=== PATIENT | female | born 1980 | race Caucasian/White ===

== ENCOUNTER 2019-11-19 03:13 | Observation (INO) | payer BC, SELFPAY ==
--- NOTE | 2019-11-19 03:13 | OBADM ---
This patient, Maine Iyer, admitted to the OB room OB Post 117 for observation. Patient/family oriented to hospital policies and general routines including ID bracelet, bed and alarms, visiting hours, pain management, procedures, bathroom and other care routines, personal items, smoking policy, room service/diet, and visiting hours. Patient/Family are encouraged to report perceived risks to care and to ask questions if they do not understand what they are told or what they should do.
[2019-11-19 03:30] VITALS: RESP 20; TEMP 37.2; BMI 28.0
[2019-11-19] MEDS: LACTATED RINGERS 1,000 ML 125 ML IV CONT (04:30)
[2019-11-19] MEDS: ONDANSETRON INJ 4 MG/2 ML VIAL IV PUSH (04:30)
[2019-11-19 04:31] VITALS: BP 113/60; PULSE 120
--- NOTE | 2019-11-19 04:52 | PM.OBTRLD ---
OB - Triage/Final Diagnosis Evaluation Vital signs: Vital Signs - 24 hr 11/19/19 04:31 Pulse Rate 120 H Blood Pressure 113/60
[2019-11-19 04:56] LABS: Blood Urea Nitrogen 5 mg/dL (7-17); Calcium 8.4 mg/dL (8.4-10.2); Carbon Dioxide 23 mmol/L (22-30); Chloride 101 mmol/L (98-107); Estimated Glomerular Filt Rate > 60; Glucose 107 mg/dL (65-105); Sodium 133 mmol/L (137-145)
--- NOTE | 2019-11-19 05:01 | PM.OBTRLD ---
OB - Triage/Final Diagnosis Visit Information Date of evaluation: 11/19/19 Reason for evaluation: other (nausea and vomiting) Evaluation Baseline heart rate: 145 Variability: Moderate (11-25) monitor accelerations: Absent monitor decelerations: Variable Laboratory results: Laboratory Tests 11/19/19 04:35 Sodium 133 L Potassium 4.0 Chloride 101 Carbon Dioxide 23 BUN 5 L Creatinine 0.50 L Estim Creat Clear Calc Not Reportable Estimated GFR > 60 Glucose 107 H Calcium 8.4 Vital signs: Vital Signs - 24 hr 11/19/19 04:31 Pulse Rate 120 H Blood Pressure 113/60
[2019-11-19 05:19] LABS: Influenza Control Positive
== END 2019-11-19 07:10 | disposition home or self-care (01) ==
PROVIDERS: Admitting Provider Student in an Organized Health Care Education/Training Program; Visit Provider Student in an Organized Health Care Education/Training Program
DX: O21.2 Late vomiting of pregnancy (principal); Z3A.37 37 weeks gestation of pregnancy
CPT/HCPCS: 36415; 80048; 87804; 96361; 96374; G0378; G0379; J2405; J7120

== ENCOUNTER 2019-11-23 05:50 | Inpatient (IN) | payer BC, SELFPAY ==
[2019-11-23] VITALS (54 sets, daily range): BP systolic 78–140; BP diastolic 41–90; PULSE 63–112; RESP 14–18; TEMP 36.4–37.3; O2SAT 93–100; BMI 28.0
--- NOTE | 2019-11-23 09:08 | LDADM ---
This patient, Maine Iyer, was admitted to Labor/Delivery/Recovery 119 on 11/23/19 at 05:50. Plans for Section with bilateral tubal ligation/ and pain management were discussed with patient. Patient/family oriented to hospital policies and general routines including ID bracelet, bed and alarms, visiting hours, pain management, procedures, bathroom and other care routines, personal items, smoking policy, room service/diet and guest tray routines, infant security routines, and visiting hours. Patient/Family are encouraged to report perceived risks to care and to ask questions if they do not understand what they are told or what they should do. See OBIX for further documentation.
[2019-11-23] MEDS: LACTATED RINGERS 1,000 ML 125 ML IV CONT ×2 (09:30→12:53)
--- NOTE | 2019-11-23 10:06 | PM.IMHP ---
H&P: HPI History of Present Illness Chief complaint: labor Narrative: Maine Iyer is a 39 year old at 37w3d who presents in labor. She reports regular contractions that started last night. She endorses good FM. She denies vaginal bleeding or LOF. Review of Systems Review of Systems: All systems reviewed & are unremarkable except as noted in HPI and below PMFSH Social History Social History (System 09/26/19 @ 12:46 by Danielle Ross) Smoking status: Never smoker Second hand tobacco smoke exposure: No Alcohol intake: current Substance use: never Spiritual care concerns: No Meds Home Medications and Allergies Home Medications Medication Instructions Recorded Confirmed Type 400 mcg PO DAILY 11/19/19 11/19/19 History Allergies Allergy/AdvReac Type Severity Reaction Status Date / Time No Known Allergies Allergy Verified 09/26/19 12:46 Exam Const: General: no acute distress and uncomfortable Neck: Neck: no JVD Resp: Effort & Inspection: normal respiratory effort Auscultation: clear to auscultation bilaterally GI: GI Palp: No Tenderness to palpation present (GI) Other: Gravid uterus, size equal to dates Neuro: Speech: normal speech Extrem: General: normal to inspection Psych: Mental Status: mental status grossly normal Affect: normal affect Assessment and Plan Assessment and plan (1) : Code(s): Z34.90 - Encounter for supervision of normal , unspecified, unspecified trimester Status: Acute Assessment and Plan: 37w gestation, valenzuela FHT 135, category 1 Rh+ GBS neg (2) History of delivery affecting : Code(s): O34.219 - Maternal care for unspecified type scar from previous delivery Status: Acute Assessment and Plan: pt presents in labor, cvs changed from FT to 2cm pt desires repeat section (3) Encounter for sterilization: Code(s): Z30.2 - Encounter for sterilization Status: Acute Assessment and Plan: plan for bilateral tubal ligation at the time of delivery
[2019-11-23 10:34] LABS: Basophils Percent Auto 0.5 % (0.2-1.2); Eosinophils Absolute Auto 0.1 K/mm3 (0-0.3); Eosinophils Percent Auto 0.9 % (0-4.4); Hematocrit 38.6 % (37.0-47.0); Hemoglobin 12.7 g/dL (12.0-15.0); Immature Granulocyte Absolute 0.02 K/mm3 (0.00-0.031); Immature Granulocyte Percent A 0.3 % (0-0.5); Lymphocytes Absolute Auto 1.31 K/mm3 (0.9-3.2); Lymphocytes Percent Auto 22.3 % (18.3-44.2); Mean Corpuscular HGB Conc 32.9 g/dl (32-36); Mean Corpuscular Hemoglobin 30.6 pg (26-34); Mean Platelet Volume 10.6 fl (7.4-10.4); Monocytes Absolute Auto 0.4 K/mm3 (0.1-0.6); Monocytes Percent Auto 7.1 % (2.6-8.5); Neutrophils Absolute Auto 4.1 K/mm3 (1.3-6.7); Neutrophils Percent Auto 68.9 % (45.5-73.1); Platelet Count Result 267 k/mm3 (150-375); Red Blood Count 4.15 M/mm3 (4.2-5.4); Red Cell Distribution Width 13.3 % (11.5-14.5); White Blood Count 5.9 K/mm3 (4.5-10.0)
--- NOTE | 2019-11-23 13:05 | WPDANESEPPF ---
Anes - Initial Pre Proc Eval Date/Time: 11/23/19 13:05 Surgeon: Aly Fink MD Pre Op Diagnosis: labor Patient Data Age: 39 Gender: F Height: 5 ft 5 in Weight: 76.4 kg Last Vital Signs Temp 37.2 C 11/23/19 11:42 Pulse 78 11/23/19 12:45 Resp 18 11/23/19 11:42 BP 134/66 11/23/19 12:45 Allergies Allergy/AdvReac Type Severity Reaction Status Date / Time No Known Allergies Allergy Verified 09/26/19 12:46 Home Medications Medication Instructions Recorded Confirmed Type 400 mcg PO DAILY 11/19/19 11/19/19 History Laboratory Tests 11/23/19 11/23/19 11/23/19 09:40 09:40 09:40 WBC 5.9 K/mm3 K/mm3 (4.5-10.0) RBC 4.15 M/mm3 L M/mm3 (4.2-5.4) Hgb 12.7 g/dL g/dL (12.0-15.0) Hct 38.6 % % (37.0-47.0) MCV 93.0 fl fl (80-100) MCH 30.6 pg pg (26-34) MCHC 32.9 g/dl g/dl (32-36) RDW 13.3 % % (11.5-14.5) Plt Count 267 k/mm3 k/mm3 (150-375) MPV 10.6 fl H fl (7.4-10.4) Immature Gran % (Auto) 0.3 % % (0-0.5) Neut % (Auto) 68.9 % % (45.5-73.1) Lymph % (Auto) 22.3 % % (18.3-44.2) Jefferson % (Auto) 7.1 % % (2.6-8.5) Eos % (Auto) 0.9 % % (0-4.4) Baso % (Auto) 0.5 % % (0.2-1.2) Lymph # (Auto) 1.31 K/mm3 K/mm3 (0.9-3.2) Jefferson # (Auto) 0.4 K/mm3 K/mm3 (0.1-0.6) Eos # (Auto) 0.1 K/mm3 K/mm3 (0-0.3) Baso # (Auto) 0.0 K/mm3 K/mm3 (0.0-0.1) Abs Immat Gran (auto) 0.02 K/mm3 K/mm3 (0.00-0.031) Absolute Neuts (auto) 4.1 K/mm3 K/mm3 (1.3-6.7) Absolute Nucleated RBC 0.0 K/mm3 K/mm3 (0.0-0.012) Nucleated RBC % 0.0 % % (0.0-0.2) RPR Pending Blood Type O Positive Antibody Screen Negative Patient hx anesthesia problems: none Family hx anesthesia problems: none PMFSH Family History Family History Mother Cerebrovascular accident Father Pancreatic cancer Social History Social History Smoking status: Never smoker Second hand tobacco smoke exposure: No Alcohol intake: current Substance use: never Spiritual care concerns: No Anes - Eval Final PreProcedure Day of Procedure 11/23/19 13:05 Patient weight: overweight Heart: regular rate and rhythm Lungs: clear to auscultation Airway: Mallampati scale class II Neurological: alert and oriented Last oral intake: >/= 8 hours ASA classification: II Emergent: no Anesthesia type and monitoring: regional spinal and standard monitoring Informed Consent: The patient's anesthetic plan and its attendant risks and benefits were discussed with the patient/family/POA. Questions were solicited and answers provided to the satisfaction of the patient/family/POA.
[2019-11-23] MEDS: ceFAZolin 2 GM/D5W 50 ML 2 GM/50 ML BAG IVPB (13:41)
--- NOTE | 2019-11-23 14:52 | PM.PROC ---
Procedure Note - Detailed Date of procedure: 11/23/19 Pre-op diagnosis: labor labor previous C/S desires permanent sterilization Post-op diagnosis: same Procedure performed: repeat low transverse section bilateral tubal ligation Description of procedure: The patient was taken to the operating room where epidural anesthesia was found to be adequate. She was then prepped and draped in the usual sterile fashion in the dorsal supine position with a leftward tilt. A Pfannenstiel skin incision was then made with the scalpel and carried through to the underlying layer of fascia. The fascia was then incised in the midline and the incision extended laterally with the Burrell scissors. The superior aspect of the fascia was then grasped with the Sia clamps, elevated, and the underlying rectus muscles dissected off bluntly and sharply. Attention was then turned to the inferior aspect of this incision which, in a similar fashion, was grasped, tented up with the Sia clamps, and the rectus muscles dissected off both bluntly and sharply. The rectus muscles were then in the midline, and the peritoneum identified, tented up, and entered sharply with the Metzenbaum scissors. The peritoneal incision was then extended superiorly and inferiorly with good visualization of the bladder. There were dense adhesions between the peritoneum and the anterior uterine body. These adhesions were taken down using bovie cautery. The bladder blade was then inserted and the vesicouterine peritoneum identified, grasped with the pick-ups and entered sharply with the Metzenbaum scissors. This incision was then extended laterally and the bladder flap created digitally. The bladder blade was then reinserted and the lower uterine segment incised in a low, transverse fashion with the scalpel. The uterine incision was then extended laterally bluntly. The bladder blade was removed and the ?s head delivered atraumatically. The nose and mouth were suctioned with the bulb suction, and the remainder of the was delivered atraumatically. The cord was clamped and cut. The was handed off to the waiting pediatricians (staff). Cord gasses were sent. The placenta was then removed manually, the uterus exteriorized, and cleared of all clots and debris. The uterine incision was repaired with 0 vicryl in a running fashion. Both fallopian tubes were identified and followed out to the fimbrae bilaterally. The left fallopian tube was grasped with Babcocks and elevated to identify an avascular space in the mesosalpinx. A window was then made in the mesosalpinx of the fallopian tube using Bovie cautery. Chromic suture was then passed through the window at the mid-isthmic portion of the fallopian tube. The tube was then suture ligated x 2 and removed including the fimbriae. The same procedure was repeated for the right fallopian tube. The uterus was returned to the abdomen. The uterus was then reinspected to ensure hemostasis as were all subfascial tissues. The peritoneum was re-approximated with vicryl in a running fashion. The fascia was reapproximated with 0 vicryl in a running fashion. The subcutaneous layer was copiously irrigated to clear any clots or debris. The subcutaneous tissue was reapproximated using 3-0 Vicryl in a running fashion. The skin was closed with 4-0 vicryl. The patient tolerated the procedure well. Sponge, lap and needle counts were correct times three. The patient was taken to the recovery room in stable condition. Anesthesia: spinal Surgeon: Armando Grover MD Estimated blood loss (mL): 175 IV fluids (mL): 1,000 Urine output (mL): 150 Drains: No Packing: No Pathology: yes (bilateral fallopian tubes) Complications: No immediate complications Condition: stable Disposition: floor ( ) Findings: dense adhesions of the peritoneum to the anterior uterus, normal appearing fallopian tubes and ovaries bilaterally
--- NOTE | 2019-11-23 18:03 | OBPPTRN ---
Patient transferred to post room #292 via stretcher. Support person present. Oriented to unit, room, information board, rooming in, admission packet and security measures. Patient verbalizes understanding.
[2019-11-23] MEDS: DEXTROSE 5%/0.45% SOD CHL 1,000 ML 125 ML IV CONT (20:18)
[2019-11-24 01:01] VITALS: BP 103/60; PULSE 80; O2SAT 100
[2019-11-24 04:40] VITALS: BP 101/66; PULSE 82; RESP 14; TEMP 36.7; O2SAT 99
[2019-11-24 06:58] LABS: Basophils Percent Auto 0.3 % (0.2-1.2); Eosinophils Absolute Auto 0.1 K/mm3 (0-0.3); Eosinophils Percent Auto 0.9 % (0-4.4); Hematocrit 33.2 % (37.0-47.0); Hemoglobin 11.1 g/dL (12.0-15.0); Immature Granulocyte Absolute 0.02 K/mm3 (0.00-0.031); Immature Granulocyte Percent A 0.3 % (0-0.5); Lymphocytes Absolute Auto 1.23 K/mm3 (0.9-3.2); Lymphocytes Percent Auto 17.8 % (18.3-44.2); Mean Corpuscular HGB Conc 33.4 g/dl (32-36); Mean Corpuscular Hemoglobin 30.7 pg (26-34); Mean Platelet Volume 10.1 fl (7.4-10.4); Monocytes Absolute Auto 0.6 K/mm3 (0.1-0.6); Monocytes Percent Auto 8.4 % (2.6-8.5); Neutrophils Percent Auto 72.3 % (45.5-73.1); Platelet Count Result 224 k/mm3 (150-375); Red Blood Count 3.61 M/mm3 (4.2-5.4); Red Cell Distribution Width 13.2 % (11.5-14.5); White Blood Count 6.9 K/mm3 (4.5-10.0)
--- NOTE | 2019-11-24 07:59 | PM.OBPNVD ---
OB - PN: Subj Subjective Date/time seen: 11/24/19 07:59 Interval history: Patient doing well this AM. she has ambulated to the bathroom and sat up in a chair. She has not yet attempted PO. She reports adequate pain control. Her bleeding is normal and she reports normal lochia. She denies fever, chills, N/V. She has not yet passed flatus. Patient comments: no complaints and pain well controlled; no flatus present OB - PN: Obj Data Labs CBC & Chem 7: 11/24/19 04:48 Labs: Laboratory Results - last 24 hr 11/23/19 11/23/19 11/24/19 09:40 09:40 04:48 WBC 5.9 6.9 RBC 4.15 L 3.61 L Hgb 12.7 11.1 L Hct 38.6 33.2 L MCV 93.0 92.0 MCH 30.6 30.7 MCHC 32.9 33.4 RDW 13.3 13.2 Plt Count 267 224 MPV 10.6 H 10.1 Immature Gran % (Auto) 0.3 0.3 Neut % (Auto) 68.9 72.3 Lymph % (Auto) 22.3 17.8 L Frederick % (Auto) 7.1 8.4 Eos % (Auto) 0.9 0.9 Baso % (Auto) 0.5 0.3 Lymph # (Auto) 1.31 1.23 Frederick # (Auto) 0.4 0.6 Eos # (Auto) 0.1 0.1 Baso # (Auto) 0.0 0.0 Abs Immat Gran (auto) 0.02 0.02 Absolute Neuts (auto) 4.1 5.0 Absolute Nucleated RBC 0.0 0.0 Nucleated RBC % 0.0 0.0 Blood Type O Positive Antibody Screen Negative OB - PN A/P Plan day: 1 Plan: routine care Comments: patient doing well this AM will plan to D/C christensen advance diet as tolerated H/H stable continue routine PP care Time Spent With Patient Time: Total time spent is greater than 50% in coordination of care (as documented) at patient's floor/unit and/or counseling patient: Time with patient: less than 15 minutes Review of Systems Constitutional: Constitutional: Reports no additional constitutional complaints Cardiovascular: Cardiovascular: Reports no additional cardiovascular complaints Respiratory: Respiratory: Reports no additional respiratory complaints Gastrointestinal: Gastrointestinal: Reports no additional gastrointestinal complaints Genitourinary: Genitourinary: Reports no additional female genitourinary complaints Exam Const: General: comfortable and no acute distress Resp: Effort & Inspection: normal respiratory effort Auscultation: clear to auscultation bilaterally Cardio: Rate: regular rate GI: GI Palp: Yes Soft to palpation and Yes Tenderness to palpation present (GI) (appropriately tender around incision ) Auscultation: normal bowel sounds Other: fundus firm and below umbilicus Incision C/D/I Urinary Catheter: Urinary Catheter: urine clear Psych: Appearance: grossly normal Mental Status: mental status grossly normal Affect: normal affect
[2019-11-24 08:00] VITALS: BP 111/72; PULSE 93; RESP 18; TEMP 37; O2SAT 96
[2019-11-24] MEDS: SIMETHICONE 80 MG TAB.CHEW PO ×2 (08:10→12:47)
[2019-11-24] MEDS: DOCUSATE SODIUM 100 MG CAPSULE PO ×2 (08:10→18:16)
[2019-11-24] MEDS: IBUPROFEN 600 MG TABLET PO ×2 (08:13→18:16)
[2019-11-24] MEDS: MULTIVIT/MIN/PREN/FOL AC/IRON TABLET 1 TAB PO (08:23)
[2019-11-24 09:02] LABS: Rapid Plasma Reagin Non-Reactive (NonReactive)
[2019-11-24 11:40] VITALS: BP 98/64; PULSE 86; RESP 18; TEMP 36.9; O2SAT 98
--- NOTE | 2019-11-24 14:31 | PC.NURSE ---
0960 Breast feeding note; nurse assisted mother to get to breast. baby awake and eager, and latched easily in cross cradle position; baby demonstrated rhythmic sucking with maintained latch. Reviewed frequency and duration of feedings, and encouraged mother to call for nurse assistance with feedings. Mother reports breast augmentation about 10 years ago with incision around the areola. Nurse reviewed with parents importance of monitoring feedings for effective latch on, regular frequent breast feedings, and monitoring wet/dirty diapers per day of age, weight, and jaundice WNL Parents seem attentive and voiced understanding of information shared.
--- NOTE | 2019-11-24 15:20 | PC.NURSE ---
Consult with pt., mother reports infant is eagerly latching without difficulties or discomfort. Mother voices concerns is getting enough, she has had augmentation breast surgery since last child and has had a revision a few years later. Mother states she has heard and read she may have a decreased milk supply due to surgery. Mother's primary RN has observed feeding and reports is eagerly latch and nursing with steady rhythmic draws and swallowing is noted. Requested mother call out next feeding for observation. Reviewed adequate signs of intake, is feeding well (as required )and has had required output for this time period. Discussed mother should continue to put to breast each feeding, keeping awake and nursing effectively every 2-3 hours for good stimulation of milk production and infant intake. Mother understands the feeding/elimination flowsheet and keeping accurate records of output, calling ICP if less than required. Discussed infant weight loss, and may be up to 10% of weight by day 3, and then milk should be transitioning in and weight should be increasing. Discussed primary RN is assessing and will update mother if is not having required output, jaundice not feeding as required and will discuss with her and update ICP. Reviewed process of discharge and her RN will discuss status at this time and advise of any changes in feeding plan that may be needed for home. A follow up visit will be scheduled for 1-2 days after discharge and status will be reviewed at this time and explained to parents if supplementation is needed. should be seen by ICP at 1 week of life and evaluated for weight, output and jaundice again. Advised it is mother's choice if she chooses to supplement, suggested she always breastfeed first then offer supplement after. Reviewed transition to breast milk, signs of adequate intake, and engorgement/relief. Instructed to call ICP if intake/output less than required. Reviewed regular medications mother is taking. Information provided per Leslie. Reviewed community resources on the [employer] website and in the Mom/Baby guide. Information on outpatient services provided. Mother has no further questions at this time.
--- NOTE | 2019-11-24 16:16 | WPDANLDPN2 ---
Anes-Prog Note L&D Date/Time: 11/24/19 16:16 Comfortable throughout: section Epidural/Spinal procedure site: clean & non-tender Neuro status: Neuro function grossly intact. Cardiovascular status: normal Respiratory status: normal Airway patency: baseline Mental status: baseline Post-Op hydration status: normal Vital Signs: Last Vital Signs Temp 36.9 C 11/24/19 11:40 Pulse 86 11/24/19 11:40 Resp 18 11/24/19 11:40 BP 98/64 L 11/24/19 11:40 Pulse Ox 98 11/24/19 11:40 Pain score (VAS): 0/10. Patient resting in bed at time of assessment, appears comfortable. Support persons at bedside. I/O: Intake & Output 11/24/19 11/24/19 11/24/19 07:59 15:59 23:59 Intake Total 480 Output Total 1475 Balance -995 Post-procedural complaints: none Patient feedback: Patient satisfied with anesthetic care.
--- NOTE | 2019-11-24 16:16 | WPDANLDNPN2 ---
Anes-Prog Note L&D-Neuraxial Date/Time: 11/24/19 16:16 Neuraxial medications: intrathecal PF morphine Opiod-related complaints: none Patient feedback: Patient satisfied with post-operative pain management.
[2019-11-24 20:33] VITALS: BP 106/66; PULSE 96; RESP 18; TEMP 37
[2019-11-24] MEDS: GUAIFENESIN/DEXTROMETHORPHAN 10 ML UDC PO (21:10)
[2019-11-25] MEDS: IBUPROFEN 600 MG TABLET PO ×3 (00:06→13:26)
--- NOTE | 2019-11-25 07:31 | PM.OBDSVD ---
DS: Diagnosis Admitting Diagnosis Admitting Diagnosis: Encounter for supervision of normal , unspecified, unspecified trimester OB - DS: Summary OB Procedures : None OB Procedures Intrapartum: and Tubal ligation OB Procedures: : None Peripartum Data Delivery Method: Section Procedures: Procedures Operation Date: 11/23/19 13:30 Actual Procedures Side Surgeon p Section Armando Grover MD complications: none Status at Discharge Functional status at discharge: independent ambulation Overall status at discharge: patient is progressing back to baseline Time Spent with Patient Time attestation: Total time spent providing and/or coordinating discharge services: Time spent: Less than 30 minutes Exam Const: General: comfortable and no acute distress Resp: Effort & Inspection: normal respiratory effort Auscultation: clear to auscultation bilaterally Cardio: Rate: regular rate GI: Inspection: non-distended GI Palp: Yes Soft to palpation, No Firmness to palpation present (GI), Yes Tenderness to palpation present (GI) (mild tenderness over incision ) and No Guarding due to palpation present (GI) Auscultation: normal bowel sounds Psych: Appearance: grossly normal Mental Status: mental status grossly normal DS: Data Data Completed and Pending Pending studies at discharge: Pending at discharge 11/23/19 14:25 Surgical [PTH] Routine Surgical [PTH] Routine Labs on day of discharge: Labs from last 24 hours 11/23/19 09:40 RPR Non-reactive Discharge Plan Discharge Discharging Clinician: Armando Grover Patient Disposition: Home, Self-Care Activity: as tolerated and pelvic rest Diet: regular Wound Care Instructions: incision open to air Discharge Instructions: call or return for temperature >100.4, bleeding >2 pads/hr for 2 hrs, pain not controlled with medications, signs/symptoms of mastitis Patient Instructions: Antibiotic Form Stand Alone Forms: General Discharge Information Follow-up/Referrals: Aly Fink MD [Physician] - 4 Weeks Discharge Medications: New hydrocodone-acetaminophen 5-325 mg Tablet 1 tab PO Q3H PRN (Reason: Moderate Pain (4-6)) Qty: 30 RF: 0 docusate sodium 100 mg Capsule 100 mg PO BID Qty: 60 RF: 0 acetaminophen [Mapap (acetaminophen)] 325 mg Tablet 650 mg PO Q6H PRN (Reason: Mild Pain (1-3)) Qty: 30 RF: 0 ibuprofen 600 mg Tablet 600 mg PO Q6H PRN (Reason: Cramping) Qty: 30 RF: 0 Hrj-J-Mkxsat Cream 1 applic topical PRN PRN (Reason: Sore Nipples) Qty: 1 RF: 0 Continued 400 mcg Tablet,Chewable 400 mcg PO DAILY RF: 0 Date of admission: 11/23/19 05:50 Primary Care Provider: UNKNOWN,DOCTOR Admitting Provider: Aly Fink Attending physician on admission: Aly Fink
[2019-11-25] MEDS: MULTIVIT/MIN/PREN/FOL AC/IRON TABLET 1 TAB PO (07:46)
[2019-11-25] MEDS: SIMETHICONE 80 MG TAB.CHEW PO ×2 (07:46→16:08)
[2019-11-25] MEDS: DOCUSATE SODIUM 100 MG CAPSULE PO ×2 (07:47→16:07)
[2019-11-25 08:00] VITALS: BP 113/79; PULSE 79; RESP 18; TEMP 36.2; O2SAT 100
--- NOTE | 2019-11-25 11:27 | PC.NURSE ---
Self care and infant care discharge instructions given including follow up visit date and time. Mother verbalized understanding. Prescription given and instructed to go to pharmacy to machine operator hop picker other. at side. Very pleasant and cooperative.
[2019-11-25] MEDS: TETANUS,DIPHTHERIA,AC PERTUSSIS ADULT 0.5 ML (ADACEL) IM (16:06)
== END 2019-11-25 16:25 | disposition home or self-care (01) | DRG 785 ==
LOC: ANHLDR 13:35 → ANHOB2 11-25 07:34 → ANHLDR 11-28 12:37 → ANHOB2 11-28 12:37
PROVIDERS: Admitting Provider Student in an Organized Health Care Education/Training Program; Visit Provider Student in an Organized Health Care Education/Training Program
PROC: 10D00Z1 Extraction of Products of Conception, Low, Open Approach (ICD-10-PCS; CPT 59514; principal; 2019-11-23 13:30)
DX: O34.211 Maternal care for low transverse scar from previous cesarean delivery (principal); Z3A.37 37 weeks gestation of pregnancy; Z37.0 Single live birth; Z30.2 Encounter for sterilization; Z23 Encounter for immunization
CPT/HCPCS: 36415; 85025; 86592; 86850; 86900; 86901; 88302; 90715; A9270; J0131; J0690; J1200; J2175; J2274; J2590; J3010; J7120